=== PATIENT | male | born 1965 | race Caucasian/White ===

== ENCOUNTER 2024-04-21 08:00 | Outpatient (CLI) | payer BC, SELFPAY | END 2024-04-21 08:01 | disposition home or self-care (01) | LOC: NFLDREF 04-29 07:41 | PROVIDERS: Visit Provider Family Medicine | DX: Z13.228 Encounter for screening for other metabolic disorders (principal); Z13.220 Encounter for screening for lipoid disorders; Z12.5 Encounter for screening for malignant neoplasm of prostate | CPT/HCPCS: 80053; 80061; G0103 ==